=== PATIENT | male | born 1980 | race Caucasian/White ===

== ENCOUNTER 2018-10-27 14:28 | Emergency (ER) | payer BC ==
--- OUTSIDE RECORDS SUMMARY | 2018-10-27 14:30 | XMS REPORT ---
:1980 Author Organization e[employer] Care Team Providers Name Role Phone Sarwat Lund Provider Role Unavailable Allergies, Adverse Reactions, Alerts Substance Reaction Event Type N.K.D.A. Info Not Available Non Drug Allergy Problems Problem Type Condition Code Onset Dates Condition Status Assessment Low back pain M54.5 Active Assessment Other chronic pain G89.29 Active Problem Mixed hyperlipidemia E78.2 Active Problem Other chronic pain G89.29 Active Problem Low back pain M54.5 Active Assessment Tobacco use disorder, continuous F17.209 Active Assessment Mixed hyperlipidemia E78.2 Active Problem Tobacco use disorder, continuous F17.209 Active Medications Medication Code Code Instructions Start End Status Dosage System Date Date Chantix Continuing [facility] 48970106651 1 MG Orally Aug 05, Active 1 tablet Month Brody Twice a day 2018 Cyclobenzaprine [facility] [id number] 10 MG Orally February 06, Active 1 tablet HCl Once at bedtime 2017 as needed PRN Spasms Results No Known Results Summary Purpose eClinicalWorks Submission
[2018-10-27 15:56] LABS: Absolute Lymphocytes (CBC) 3.6 K/uL (0.7-4.9); Absolute Monocytes 0.6 K/uL (0.1-1.3); Absolute Neutrophil 5.2 K/uL (1.8-8.0); Basophils % 0.5 % (0-1.3); Eosinophils % 1.7 % (0-4.4); Hematocrit 42.2 % (39.6-49.0); Lymphocytes % 37.8 % (15.3-44.8); MPV 7.9 fL (7.6-11.3); Monocytes % 5.8 % (3.3-12.3); RBC Red Blood Cell Count 4.76 M/uL (4.33-5.43)
[2018-10-27 16:32] LABS: ALT/SGPT 24 U/L (12-78); AST/SGOT 17 U/L (15-37); Albumin 3.8 g/dL (3.4-5.0); Alkaline Phosphatase 77 U/L (45-117); BUN Blood Urea Nitrogen 15 mg/dL (7-18); Bicarbonate 27 mmol/L (21-32); Bilirubin Direct < 0.1 mg/dL (0-0.2); Bilirubin Total 0.2 mg/dL (0.2-1.0); Glucose Level 85 mg/dL (74-106); Lipase 164 U/L (73-393); Potassium 3.9 mmol/L (3.5-5.1); Protein, Total 7.1 g/dL (6.4-8.2); Sodium Level 143 mmol/L (136-145)
--- NOTE | 2018-10-27 18:14 | RAD REPORT ---
EXAM DESCRIPTION: CT - Abdomen Pelvis W Contrast - 10/27/2018 5:54 pm CLINICAL HISTORY: Right lower abdominal pain COMPARISON: None. TECHNIQUE: Biphasic, helical CT imaging of the abdomen and pelvis was performed following 100 ml non -ionic IV contrast. Oral contrast was given. All CT scans are performed using dose optimization technique as appropriate and may include automated exposure control or mA/KV adjustment according to patient size. FINDINGS: No suspicious findings in the lung bases. The liver, spleen, and pancreas show no suspicious findings. Gallbladder and biliary tree are also wi thout suspicious finding. Symmetric renal function is seen with no hydronephrosis or suspicious renal mass. No pyelonephritis o r acute parenchymal process. No bladder abnormalities. No adrenal abnormalities. No dilated bowel loops or bowel wall thickening. No appendicitis findings. There are a few small mese nteric lymph nodes present under 1 centimeter in size. No free air, free fluid or inflammatory strand ing. No hernia, mass or bulky lymphadenopathy. No suspicious bony findings. IMPRESSION: No appendicitis or surgically emergent finding. A few small mesenteric lymph nodes are present. No acute GI process seen.
[2018-10-27] MEDS ORDERED: MORPHINE 2 MG/ML SYR ONE (18:18)
--- NOTE | 2018-10-27 18:39 | EDPHYS ---
Physician Documentation [facility] Name: Bo Rios Age: 38 yrs Sex: Male : 1980 Arrival Date: 10/27/2018 Time: 14:31 Bed 14 Private MD: Kevon [facility] ED Physician River Pugh Historical: - Allergies: 10/27 14:32 No Known Allergies; hj - PMHx: 14:32 None; hj - PSHx: 14:32 None; hj - Immunization history:: Adult Immunizations unknown. - Social history:: Smoking status: unknown. - Ebola Screening: : Patient negative for fever greater than or equal to 101.5 degrees Fahrenheit, and additional compatible Ebola Virus Disease symptoms Patient denies exposure to infectious person Patient denies travel to an Ebola-affected area in the 21 days before illness onset No symptoms or risks identified at this time. Vital Signs: 14:33 BP 135 / 84; Pulse 71; Resp 18; Temp 97.8(TE); Pulse Ox 99% on R/A; Weight 74.84 kg; hj Height 6 ft. 0 in. (182.88 cm); Pain 5/10; 18:00 BP 123 / 93; Pulse 63; Resp 16; Pulse Ox 99% on R/A; Pain 6/10; iw 14:33 Body Mass Index 22.38 (74.84 kg, 182.88 cm) hj MDM: 15:02 Patient medically screened. [facility] 18:38 Data reviewed: vital signs, nurses notes. Counseling: I had a detailed discussion with jordyn the patient and/or guardian regarding: the historical points, exam findings, and any diagnostic results supporting the discharge/admit diagnosis, the need for outpatient follow up, to return to the emergency department if symptoms worsen or persist or if there are any questions or concerns that arise at home. 10/27 15:35 Order name: Basic Metabolic Panel; Complete Time: 17:31 [facility] 10/27 15:35 Order name: CBC with Diff; Complete Time: 17:31 [facility] 10/27 15:35 Order name: Creatinine for Radiology; Complete Time: 17:31 [facility] 10/27 15:35 Order name: Hepatic Function; Complete Time: 17:31 [facility] 10/27 15:35 Order name: Lipase; Complete Time: 17:31 [facility] 10/27 15:41 Order name: Urine Dipstick--Ancillary (enter results) em1 10/27 15:35 Order name: IV Saline Lock; Complete Time: 15:49 [facility] 10/27 15:35 Order name: Labs collected and sent; Complete Time: 15:49 [facility] 10/27 15:35 Order name: CT Abd/Pelvis - W/Contrast; Complete Time: 18:20 [facility] Administered Medications: 15:57 Drug: Zofran 4 mg Route: IVP; Site: right wrist; iw 18:12 Follow up: Response: No adverse reaction iw 15:57 Drug: morphine 2 mg Route: IVP; Site: right wrist; iw 16:15 Follow up: Response: No adverse reaction; Pain is decreased iw 18:10 Drug: morphine 2 mg Route: IVP; Site: right wrist; iw 18:55 Follow up: Response: No adverse reaction; Pain is decreased iw Disposition: 10/28 10:27 Co-signature as Attending Physician, River Pugh MD I agree with the assessment and kdr plan of care. Disposition: 10/27/18 18:39 Discharged to Home. Impression: Lower abdominal pain, unspecified. - Condition is Stable. - Discharge Instructions: Abdominal Pain, Adult. - Prescriptions for Ultracet 37.5- 325 mg Oral Tablet - take 1 tablet by ORAL route every 6 hours - for up to 5 days; do not exceed 8 tablets per day.; 12 tablet. - Medication Reconciliation Form, Thank You Letter, Antibiotic Education, Prescription Opioid Use, Work release form form. - Follow up: Sarwat Lund, DO; When: 2 - 3 days; Reason: Recheck today's complaints, Continuance of care, Re-evaluation by your physician. - Notes: Please follow up with gastroenterology for further evaluation. please return to the emergency department if you develop. - Increased pain - Vomiting - Fever - Any other concerning symptoms Addendum: 11/07/2018 16:22 Addendum: This is a 38 year old male with complaints of right lower abdominal pain j mm beginning 1 day ago. Admits to diarrhea. Denies vomiting, Denies fever. ROS: Abdominal pain, diarrhea, otherwise negative. PE: Gen: NAD, HEEN: Atraumatic Cardio: RRR, Resp: CTA Bilaterally. Abd: Right lower abdominal tenderness, mild. Extremities: FROM, Back: FROM, no CVA tenderness, NEURO: A x O x 3. MDM: CT negative, due to location of the pain patient was given early appendicitis return precautions and otherwise advised to follow up with GI. Patient understood and agrees with the plan of care. Patient has no scrotal tenderness, i do not currently suspect torsion. Diagnosis: Lower abdominal pain. . Signatures: Dispatcher [employer] EDMS River Pugh MD MD kdr Mickail, Joel, PA PA jmm Williams, Irene, BENOIT RN iw Jose Pal RN RN Corrections: (The following items were deleted from the chart) 10/27 18:59 18:39 10/27/2018 18:39 Discharged to Home. Impression: Lower abdominal pain, iw unspecified. Condition is Stable. Forms are Medication Reconciliation Form, Thank You Letter, Antibiotic Education, Prescription Opioid Use. Follow up: Sarwat Lund; When: 2 - 3 days; Reason: Recheck today's complaints, Continuance of care, Re-evaluation by your physician. jordyn
--- NOTE | 2018-10-27 18:39 | ER ---
Nurse's Notes [facility] Name: Bo Rios Age: 38 yrs Sex: Male : 1980 Arrival Date: 10/27/2018 Time: 14:31 Bed 14 Private MD: Sarwat Lund Diagnosis: Lower abdominal pain, unspecified Presentation: 10/27 14:31 Presenting complaint: Patient states: yesterday i started this abd pain on my R lower hj abd, denies N/V; denies fever; reports diarrhea;. Transition of care: patient was not received from another setting of care. Onset of symptoms was October 27, 2018. Risk Assessment: Do you want to hurt yourself or someone else? Patient reports no desire to harm self or others. Initial Sepsis Screen: Does the patient meet any 2 criteria? No. Patient's initial sepsis screen is negative. Does the patient have a suspected source of infection? No. Patient's initial sepsis screen is negative. Care prior to arrival: None. 14:31 Method Of Arrival: Ambulatory 14:31 Acuity: MARLON 3 hj Historical: - Allergies: 14:32 No Known Allergies; hj - PMHx: 14:32 None; hj - PSHx: 14:32 None; hj - Immunization history:: Adult Immunizations unknown. - Social history:: Smoking status: unknown. - Ebola Screening: : Patient negative for fever greater than or equal to 101.5 degrees Fahrenheit, and additional compatible Ebola Virus Disease symptoms Patient denies exposure to infectious person Patient denies travel to an Ebola-affected area in the 21 days before illness onset No symptoms or risks identified at this time. Screenin:19 Abuse screen: Denies threats or abuse. Denies injuries from another. Nutritional iw screening: No deficits noted. Tuberculosis screening: No symptoms or risk factors identified. Fall Risk IV access (20 points). Assessment: 16:00 General: Appears in no apparent distress. Behavior is calm, cooperative. Pain: iw Complains of pain in right lower quadrant. Neuro: Level of Consciousness is awake, alert, obeys commands, Moves all extremities. Full function. Cardiovascular: Patient's skin is warm and dry. Respiratory: Respiratory effort is even, unlabored, Respiratory pattern is regular. GI: Abdomen is flat, non-distended, Reports lower abdominal pain, diarrhea. Derm: Skin is intact, is healthy with good turgor. Musculoskeletal: Range of motion: intact in all extremities. 17:59 Reassessment: Patient appears in no apparent distress at this time. Patient and/or iw family updated on plan of care and expected duration. Pain level reassessed. Patient is alert, oriented x 3, equal unlabored respirations, skin warm/dry/pink. pt returned from CT, still c/o abd pain and back pain due to stretcher. Vital Signs: 14:33 BP 135 / 84; Pulse 71; Resp 18; Temp 97.8(TE); Pulse Ox 99% on R/A; Weight 74.84 kg; hj Height 6 ft. 0 in. (182.88 cm); Pain 5/10; 18:00 BP 123 / 93; Pulse 63; Resp 16; Pulse Ox 99% on R/A; Pain 6/10; iw 14:33 Body Mass Index 22.38 (74.84 kg, 182.88 cm) ED Course: 14:31 Patient arrived in ED. mr 14:31 Sarwat Lund DO is Private Physician. mr 14:32 Triage completed. hj 14:32 Arm band placed on right wrist. hj 14:35 Zuri Muñoz, RN is Primary Nurse. iw 14:56 Williams Aranda PA is PHCP. jmm 14:56 River Pugh MD is Attending Physician. jmm 15:41 Oral contrast given. sj 15:46 Initial lab(s) drawn, by nh, sent to lab. Inserted saline lock: 18 gauge in right dh3 forearm, using aseptic technique. Blood collected. 17:55 CT Abd/Pelvis - W/Contrast In Process Unspecified. EDMS 18:01 CT completed. Patient tolerated procedure well. Patient moved to CT walked. Patient eh moved back from CT. 18:38 Sarwat Lund DO is Referral Physician. jmm 18:54 No provider procedures requiring assistance completed. IV discontinued, intact, iw bleeding controlled, No redness/swelling at site. Pressure dressing applied. 18:55 Patient has correct armband on for positive identification. iw Administered Medications: 15:57 Drug: Zofran 4 mg Route: IVP; Site: right wrist; iw 18:12 Follow up: Response: No adverse reaction iw 15:57 Drug: morphine 2 mg Route: IVP; Site: right wrist; iw 16:15 Follow up: Response: No adverse reaction; Pain is decreased iw 18:10 Drug: morphine 2 mg Route: IVP; Site: right wrist; iw 18:55 Follow up: Response: No adverse reaction; Pain is decreased iw Outcome: 18:39 Discharge ordered by MD. cobb 18:54 Discharged to home ambulatory, with family. iw 18:54 Condition: good 18:54 Discharge instructions given to patient, family, Instructed on discharge instructions, follow up and referral plans. medication usage, Demonstrated understanding of instructions, follow-up care, medications, Prescriptions given X 1. 18:59 Patient left the ED. iw Signatures: Dispatcher [employer] EDMS Williams Aranda PA PA [facility] Daina Jackson mr Peña, Steven Cain, Zuri Spicer, RN RN Jose Pal RN RN Mirtha Farris 3 Corrections: (The following items were deleted from the chart) 14:34 14:33 Pulse 71bpm; Resp 18bpm; Pulse Ox 99% RA; Temp 97.8F Temporal; 74.84 kg; Height 6 hj ft. 0 in.; BMI: 22.3; Pain 5/10; hj
[2018-10-27 20:01] LABS: Urine Blood NEGATIVE (NEG); Urine Glucose NEGATIVE (NEG); Urine Protein NEGATIVE (NEG); Urine Specific Gravity >1.030 (1.005-1.030); Urine pH 5.5 (5.0-7.0)
== END 2018-10-27 18:59 | disposition home or self-care (01) ==
LOC: ER 14:28
DX: R10.31 Right lower quadrant pain (principal)
CPT/HCPCS: 36415; 74177; 80048; 80076; 81003; 83690; 85025; 96374; 96375; 99284; J2270; Q9967

== ENCOUNTER 2020-05-18 14:14 | Emergency (ER) | payer BC, SELFPAY ==
--- OUTSIDE RECORDS SUMMARY | 2020-05-18 14:16 | XMS REPORT | Continuity of Care Document ---
:1980 Author Organization [facility] t Address [address] [place] [address] Care Team Providers Name Role Phone Unavailable Unavailable Unavailable Problems Condition Condition Condition Status Onset Resolution Last Treating Co mments Source Name Details Category Date Date Treatment Clinician Date Low back Low back [facility] Other Other Problem Active [facility] chronic chronic [facility] pain [facility] Mixed Mixed Diagnosis Active [facility] hyperlipid hyperlipid Martha kes - emia emia [facility] Tobacco Tobacco Problem Active [facility] use use [facility] - disorder, disorder, Yunier noelle continuous continuous [facility] ent [facility] Allergies, Adverse Reactions, Alerts This patient has no known allergies or adverse reactions. Medications Ordered Filled Start Stop Current Ordering Indication Dosage Frequency Signature Comments Components Source Medication Medication Date Date Medication? Clinician (SIG) Name Name Cyclobenzap Cyclobenzap Yes Sarwat [address] [facility] rine HCl rine HCl 7-30 Lund as needed L ukes - 00:00: Memoria 00 [facility] Clinics Chantix Chantix 2019- No Sarwat [address] Continuing Continuing 08-05 Lund L uk - Month Brody Month Brody 00:00 Yunier noelle :00 [facility] Procedures This patient has no known procedures. Encounters Start End Encounter Admission Attending Care Care Encounter Source Date/Time Date/Time Type Type Clinicians Facility Department ID 2018-02-06 2018-02-06 [facility] [id number] [facility] [address] 11:15:00 11:15:00 [facility] Family Medicine Medicine [facility] Results This patient has no known results.
[2020-05-18] MEDS ORDERED: HYDROCODONE/APAP 10/325 TAB ONE (15:58)
--- NOTE | 2020-05-18 16:14 | RAD REPORT ---
EXAM DESCRIPTION: RAD - Ankle Left 3 View - 05/18/2020 4:07 pm CLINICAL HISTORY: Pain;Swelling COMPARISON: No comparisons FINDINGS: Bimalleolar fracture is present with moderate soft tissue swelling evident. Tiny calcaneal spurs are evident. No dislocation.
--- NOTE | 2020-05-18 16:15 | RAD REPORT ---
EXAM DESCRIPTION: RAD - Foot Left 3 View - 05/18/2020 4:07 pm CLINICAL HISTORY: Pain;Swelling COMPARISON: No comparisons FINDINGS: Moderate soft tissue swelling is seen along the dorsum of the forefoot. Bimalleolar ankle fracture is observed. No dislocation evident.
--- NOTE | 2020-05-18 16:39 | ER ---
Nurse's Notes [facility] Name: Bo Rios Age: 40 yrs Sex: Male : 1980 Arrival Date: 05/18/2020 Time: 14:17 Bed 25 Private MD: Diagnosis: Bimalleolar fracture of lower leg Presentation: 05/18 15:00 Chief complaint: Patient states: left ankle pain since last night, jumping on iw trampoline last night. Coronavirus screen: At this time, the client does not indicate any symptoms associated with coronavirus-19. Ebola Screen: Patient negative for fever greater than or equal to 101.5 degrees Fahrenheit, and additional compatible Ebola Virus Disease symptoms Patient denies exposure to infectious person. Patient denies travel to an Ebola-affected area in the 21 days before illness onset. No symptoms or risks identified at this time. Initial Sepsis Screen: Does the patient meet any 2 criteria? No. Patient's initial sepsis screen is negative. Does the patient have a suspected source of infection? No. Patient's initial sepsis screen is negative. Risk Assessment: Do you want to hurt yourself or someone else? Patient reports no desire to harm self or others. Onset of symptoms was May 17, 2020. 15:00 Method Of Arrival: Wheelchair iw 15:00 Acuity: MARLON 4 iw Triage Assessment: 17:00 General: Appears in no apparent distress. Behavior is calm, cooperative. iw Historical: - Allergies: 15:02 No Known Allergies; iw - PMHx: 15:02 None; iw - PSHx: 15:02 None; iw - Immunization history:: Adult Immunizations up to date. - Social history:: Smoking status: unknown. Screenin:10 Abuse screen: Denies threats or abuse. Denies injuries from another. Nutritional iw screening: No deficits noted. Tuberculosis screening: No symptoms or risk factors identified. Fall Risk None identified. Assessment: 15:30 General: Appears in no apparent distress. Behavior is calm, cooperative. Pain: iw Complains of pain in left medial ankle and left lateral ankle Pain currently is 6 out of 10 on a pain scale. Neuro: No deficits noted. Level of Consciousness is awake, alert, obeys commands, Oriented to person, place, time, situation, Moves all extremities. Cardiovascular: Patient's skin is warm and dry. Respiratory: Respiratory effort is even, unlabored, Respiratory pattern is regular. Derm: Skin is intact, is healthy with good turgor. Musculoskeletal: Range of motion: limited in left ankle Swelling present in left lateral ankle and dorsum of left foot Reports pain in left lateral ankle. Vital Signs: 16:01 BP 125 / 76; Pulse 84; Resp 16 S; Pulse Ox 98% on R/A; Pain 8/10; iw ED Course: 14:17 Patient arrived in ED. mr 14:50 Zuri Muñoz, BENOIT is Primary Nurse. iw 14:53 Sajan Goldman NP is PHCP. pm1 14:53 Migel Ash MD is Attending Physician. pm1 15:02 Triage completed. iw 15:02 Arm band placed on. iw 15:30 Patient has correct armband on for positive identification. iw 16:07 Ankle Left 3 View XRAY In Process Unspecified. EDMS 16:07 Foot Left 3 View XRAY In Process Unspecified. EDMS 16:38 Neil Campos MD is Referral Physician. pm1 17:10 No provider procedures requiring assistance completed. Patient did not have IV access iw during this emergency room visit. 17:30 Crutch training done. Orthoglass splint: Posterior short lleg splint applied on left iw leg. applied by RICCARDO Billy. Administered Medications: 16:00 Drug: [place] 10 mg-325 mg 1 tabs Route: PO; iw Outcome: 16:38 Discharge ordered by . pm1 17:10 Discharged to home via wheelchair, with crutches. iw 17:10 Condition: good 17:10 Discharge instructions given to patient, Instructed on discharge instructions, follow up and referral plans. medication usage, Demonstrated understanding of instructions, follow-up care, medications, crutch walking, splint care, Prescriptions given X 1. 17:11 Patient left the ED. iw Signatures: Dispatcher [employer] EDCT Jackson Daina mr Zuri Muñoz RN RN iw Sajan Goldman NP [employer]ATOR pm1
--- NOTE | 2020-05-18 16:39 | EDPHYS ---
Physician Documentation [facility] Name: Bo Rios Age: 40 yrs Sex: Male : 1980 Arrival Date: 05/18/2020 Time: 14:17 Bed 25 Private MD: ED Physician Migel Ash HPI: 05/18 15:11 This 40 yrs old Male presents to ER via Wheelchair with complaints of Ankle pm1 Injury. 15:11 The patient presents with an injury. The complaints affect the left ankle. Onset: The pm1 symptoms/episode began/occurred yesterday. Context: The problem was sustained outdoors, resulted from doing a flip on trampoline and landed wrong on his left ankle. Patient has been walking on his left lower extremity but reports pain and cracking sounds with walking, The mechanism of injury involved inversion of the affected ankle. the patient is able to ambulate. Associated signs and symptoms: Pertinent positives: swelling, bruising, Pertinent negatives: calf tenderness. Modifying factors: The symptoms are alleviated by elevation of extremity, the symptoms are aggravated by weight bearing, movement. Severity of symptoms: in the emergency department the symptoms are unchanged. The patient has not experienced similar symptoms in the past. Historical: - Allergies: 15:02 No Known Allergies; iw - PMHx: 15:02 None; iw - PSHx: 15:02 None; iw - Immunization history:: Adult Immunizations up to date. - Social history:: Smoking status: unknown. ROS: 15:11 Constitutional: Negative for fever, chills, and weight loss. pm1 15:11 Cardiovascular: Negative for chest pain, palpitations, and edema, Respiratory: Negative for shortness of breath, cough, wheezing, and pleuritic chest pain. 15:11 Skin: Negative for injury, rash, and discoloration. 15:11 MS/extremity: Positive for pain, swelling, of the left lateral ankle and left medial ankle, Negative for decreased range of motion, left ankle. Exam: 15:11 Constitutional: This is a well developed, well nourished patient who is awake, alert, pm1 and in no acute distress. Head/Face: Normocephalic, atraumatic. Neck: Trachea midline, no thyromegaly or masses palpated, and no cervical lymphadenopathy. Supple, full range of motion without nuchal rigidity, or vertebral point tenderness. No Meningismus. 15:11 Back: No spinal tenderness. No costovertebral tenderness. Full range of motion. 15:11 Cardiovascular: Exam negative for acute changes, Rate: normal, Rhythm: regular, Pulses: no pulse deficits are appreciated. 15:11 Respiratory: Exam negative for acute changes, respiratory distress, shortness of breath. 15:11 Musculoskeletal/extremity: Extremities: grossly normal except: noted in the left medial ankle and left lateral ankle: swelling, tenderness, noted in the dorsum of left foot: ecchymosis, no evidence of decreased ROM. Vital Signs: 16:01 BP 125 / 76; Pulse 84; Resp 16 S; Pulse Ox 98% on R/A; Pain 8/10; iw Procedures: 16:40 Splinting: Splint applied to left ankle using Orthoglass splint, applied by tech. pm1 Examined by me, post splint application: neurovascular intact, 2+ distal pulses palpable, brisk capillary refill noted, Patient tolerated well. MDM: 14:53 Patient medically screened. pm1 16:37 Data reviewed: vital signs. Data interpreted: Pulse oximetry: on room air is 98 %. pm1 Interpretation: normal. Counseling: I had a detailed discussion with the patient and/or guardian regarding: the historical points, exam findings, and any diagnostic results supporting the discharge/admit diagnosis, radiology results, the need for outpatient follow up, for definitive care, a orthopedic surgeon, to return to the emergency department if symptoms worsen or persist or if there are any questions or concerns that arise at home. 05/18 14:59 Order name: Ankle Left 3 View XRAY; Complete Time: 16:21 pm1 05/18 14:59 Order name: Foot Left 3 View XRAY; Complete Time: 16:21 pm1 05/18 15:11 Order name: Splint - Ankle: Posterior; Complete Time: 07:39 pm1 05/18 15:11 Order name: Splint - Ankle: Orthoglass: Stirrup; Complete Time: 07:39 pm1 05/18 15:11 Order name: Ice pack; Complete Time: 07:39 pm1 05/18 16:40 Order name: Crutches; Complete Time: 17:07 pm1 Administered Medications: 16:00 Drug: [place] 10 mg-325 mg 1 tabs Route: PO; iw Disposition: 05/19 08:38 Co-signature as Attending Physician, Migel Ash MD I agree with the assessment and ranjan plan of care. Disposition: 05/18/20 16:38 Discharged to Home. Impression: Bimalleolar fracture of lower leg. - Condition is Stable. - Discharge Instructions: Ankle Fracture, Cast or Splint Care, Adult, Crutch Use. - Prescriptions for Tylenol- Codeine #3 300-30 mg Oral Tablet - take 2 tablets by ORAL route every 6 hours As needed; 20 tablet. - Work release form, Medication Reconciliation Form, Thank You Letter, Antibiotic Education, Prescription Opioid Use form. - Follow up: Emergency Department; When: As needed; Reason: Worsening of condition. Follow up: Neil Campos MD; When: 2 - 3 days; Reason: Recheck today's complaints, Continuance of care, Re-evaluation by your physician. - Problem is new. - Symptoms have improved. Signatures: Dispatcher [employer] EDIL Migel Ash MD MD cha Williams, Irene, RN RN Sajan Mac NP [employer] pm1 Corrections: (The following items were deleted from the chart) 05/18 17:11 16:38 05/18/2020 16:38 Discharged to Home. Impression: Bimalleolar fracture of lower iw leg. Condition is Stable. Forms are Medication Reconciliation Form, Thank You Letter, Antibiotic Education, Prescription Opioid Use. Follow up: Emergency Department; When: As needed; Reason: Worsening of condition. Follow up: Neil Campos; When: 2 - 3 days; Reason: Recheck today's complaints, Continuance of care, Re-evaluation by your physician. Problem is new. Symptoms have improved. pm1
[2020-05-18 17:43] VITALS: BP 125/76; O2SAT 98
== END 2020-05-18 17:11 | disposition home or self-care (01) ==
LOC: ER 14:14
PROC: 2W3RX1Z Immobilization of Left Lower Leg using Splint (ICD-10-PCS; principal; 2020-05-18)
DX: S82.842A Displaced bimalleolar fracture of left lower leg, initial encounter for closed fracture (principal); W17.89XA Other fall from one level to another, initial encounter; Y93.44 Activity, trampolining; Y92.9 Unspecified place or not applicable
CPT/HCPCS: 99283